=== PATIENT | male | born 1960 ===

== ENCOUNTER 2023-04-20 15:05 | Inpatient (IN) ==
[2023-04-20] MEDS ORDERED: STAT IV STA ×2 (16:12→22:26)
[2023-04-20] MEDS ORDERED: DEXTROSE 50% 50 ML SYRINGE IV STA ×2 (16:12→22:26)
[2023-04-20] MEDS ORDERED: INSULIN HUMAN REGULAR PER UNIT 10 UNITS in SYRINGE 9.9 ML IV STA (16:12)
[2023-04-20] MEDS ORDERED: CALCIUM GLUCONATE 10% 1,000 MG in DEXTROSE 5% 50 ML IV STA (16:12)
[2023-04-20 16:51] LABS: BUN Creatinine Ratio 23.6 (10-20); Calcium 8.5 mg/dl (8.6-10.3); Creatinine Clr Calc Pharmacy 40.1 ml/min; Est GFR (African American) 46.7 ml/min; Est GFR (Non-African American) 40.3 ml/min; Potassium 6.6 mmol/L (3.5-5.1)
[2023-04-20 16:57] LABS: Hemoglobin 9.7 g/dl (14.0-18.0); Mean Corpuscular Hemoglobin 21.7 pg (25.0-34.0); Mean Corpuscular Hgb Conc 31.3 g/dL (32.0-36.0); Mean Corpuscular Volume 69.2 fL (80.0-100.0); Mean Platelet Volume 11.5 fL (9.4-12.4); Platelet Count 132 K/uL (130-400); RDW Coefficient of Variation 16.8 % (11.5-14.5); RDW Standard Deviation 40.8 fL (36.4-46.3); Red Blood Count 4.48 M/uL (4.70-6.10); White Blood Count 11.82 K/ul (4.8-10.8)
[2023-04-20 17:02] LABS: Basophils # (auto) 0.02 K/uL (0-0.2); Basophils % (auto) 0.2 %; Eosinophils # (auto) 0.05 K/uL (0-0.50); Eosinophils % (auto) 0.4 %; Immature Granulocytes # (auto) 0.07 K/uL (0.01-0.20); Immature Granulocytes % (auto) 0.6 %; Lymphocytes # (auto) 0.18 K/uL (1.2-3.4); Lymphocytes % (auto) 1.5 %; Microcytosis Present; Monocytes # (auto) 0.89 K/uL (0.11-0.59); Monocytes % (auto) 7.5 %; Neutrophils # (auto) 10.61 K/uL (1.40-6.50); Neutrophils % (auto) 89.8 %; Polychromasia 1+; Target Cells 1+; Tear Drop Cells 1+
[2023-04-20 17:02] LABS: Appearance Urine Clear (Clear); Bilirubin Urine Negative (Negative); Blood Urine Negative (Negative); Color Urine Yellow; Glucose Urine UA 2+ (Negative); Ketones Urine Trace (Negative); Leukocyte Esterase Urine Negative (Negative); Nitrite Urine Negative (Negative); Protein Urine Negative (Negative); Specific Gravity Urine 1.017 (1.000-1.030); Urobilinogen Urine Negative (Negative); pH Urine 5.5 (4.5-7.5)
--- NOTE | 2023-04-20 17:19 | Ultrasound Report ---
US renal/blad retro comp CLINICAL HISTORY: shyann TECHNIQUE: Multiple sonographic real-time images of the kidneys and bladder were obtained. COMPARISON: None available at the time of this dictation. FINDINGS: The right kidney measures 10.5 cm in length, and the left kidney measures 10.1 cm in length. The right kidney is normal in size, contour, cortical thickness, and echogenicity. No hydronephrosis is seen. Minimal prominence of the upper pole collecting system is seen. No renal lesion is identifie d. The left kidney is normal in size, contour, cortical thickness and echogenicity. No hydronephrosis i s identified. No renal lesion is identified. Bladder is under distended. The wall may be mildly prominent. The jets were not seen on today's exam. Incidental note is made of splenomegaly measuring 13.7 cm. IMPRESSION: No evidence of hydronephrosis. ACT 112: Negative or not required by law. Electronically signed by: Neto Arellano M.D. 04/20/2023 5:17 PM
--- NOTE | 2023-04-20 17:27 | History & Physical Report ---
Date of Service April 20, 2023 Assessment & Plan (1) Hyperkalemia: Plan: -EKG shows incomplete RBBB which was also present on prior -s/p 10 units insulin/dextrose 50%/calcium gluconate in ER -hold lisinopril -start LR at 125 cc/hr. -repeat BMP in 4 hours to ensure stability (2) YENY (acute kidney injury): Plan: -Prior Cr 1.1 from 2020. -renal/bladder ultrasound unremarkable -hold lisinopril, metformin -IVF as above -repeat BMP tomorrow (3) Leukocytosis: Plan: -likely reactive vs gastroenteritis -stool studies -check UA (4) Nausea vomiting and diarrhea: Plan: -likely gastroenteritis -stool studies ordered Plan DVT ppx- SQ heparin Code status-Full, discussed with patient Chronic Medical issues HTN- hold lisinopril HLD-continue atorvastatin [id number]- hold glimepiride, metformin, januvia. Correctional scale insulin while here Schizophrenia- continue haldol benztropine History of Present Illness Chief Complaint: abnormal outpatient labs Primary Care Provider: [facility] Mr Earl Bailey is a 63 year old man with history of hypertension on lisinopril, non insulin dependent diabetes on metformin, glimepiride and januvia, schizophrenia on haldol who is incarcerated was sent in today for outpatient labwork showing a potassium of 6.2. Patient reports being in his usual state of health and today after getting out of the shower, he suddenly felt very nauseous and had multiple episodes of vomiting. Associated with loose watery diarrhea. No further n/v since being here but still having diarrhea. He denies having chest pain, shortness of breath, fever/chills. Labwork here confirms hyperkalemia (K 6.6) and also shows YENY (Cr 1.9 from baseline 1). He reports getting labwork every 3 months or so and his last set of labwork was reportedly normal. ER course- 10 units insulin, Dextrose 50% amp, Calcium gluconate Allergies Allergy/AdvReac Type Severity Reaction Status Date / Time sodium chloride AdvReac Unknown CONTRAINDICATED Verified 04/20/23 16:27 [From [place] Nasal] FOR THIS PT. Home Medications Medication Instructions Recorded Confirmed Type benztropine 1 mg tablet 1 mg PO BID 07/19/21 04/20/23 History glimepiride 4 mg tablet (Amaryl) 8 mg PO QAM 07/19/21 04/20/23 History haloperidol 5 mg tablet 5 mg PO BID 07/19/21 04/20/23 History metformin 1,000 mg tablet 1,000 mg PO BID 07/19/21 04/20/23 History ascorbic acid (vitamin C) 500 mg 500 mg PO DAILY 04/20/23 04/20/23 History tablet (Vitamin C) atorvastatin 20 mg tablet (Lipitor) 20 mg PO DAILY 04/20/23 04/20/23 History lisinopril 10 mg tablet 10 mg PO DAILY 04/20/23 04/20/23 History ondansetron HCl 8 mg tablet 8 mg PO DAILY 04/20/23 04/20/23 History sitagliptin phosphate 100 mg 100 mg PO DAILY 04/20/23 04/20/23 History tablet (Januvia) Past Med/Surg History Medical History Diabetes HTN (hypertension) Hyperlipemia Inmate in correctional facility [facility] Psychiatric disorder Surgical History No history of previous surgery Social History Smoking Status: Never smoker Second Hand Exposure: No; Do You Dip or Chew Tobacco: No ([facility]); Hx Alcohol Use: No ([facility]) Hx Substance Use: No ([facility]) Preferred Language: Belarusian Communication Ability: Effective Grocery Cashier Required: No Beliefs That Will Affect Care: None Current Living Situation: Other Current Living Situation Comment: [facility] Feels Safe at Home: Yes Review of Systems Review of Systems: As above in HPI. Remaining ROS otherwise negative Physical Exam Physical Exam: Appears stated age, thin, non toxic ENMT: Mucous membrane dry, head is normocephalic, atraumatic Respiratory: Breathing comfortably on room air, no wheezing/rhonchi/rales Cardiovascular: Regular rate and rhythm, no murmurs/rubs/galloops Gastrointestinal (Abdomen): soft, non tender, +BS Musculoskeletal: No edema, no clubbing, no cyanosis Skin: No bruising, no rash, no ulcer noted on exposed skin Neurologic: awake, alert, spontaneously moving extremities Psychiatric: affect normal, speech linear, non pressured, maintains eye contact Results & Data Results & Data Vital Signs (Past 12 Hours) Vital Signs Temp Pulse Pulse Resp BP BP Pulse Ox 04/20/23 16:12 86 22 98 04/20/23 15:14 94 H 04/20/23 15:19 93 H 22 110/59 L 98 04/20/23 15:19 36.6 C 93 H 22 110/59 L 98 O2 Del Method 04/20/23 16:12 Room Air 04/20/23 15:14 04/20/23 15:19 Room Air 04/20/23 15:19 Room Air
[2023-04-20] MEDS ORDERED: NovoLIN-R INSULIN PER UNIT CHARGE ONE (18:01)
[2023-04-20] MEDS ORDERED: GLUCAGON FOR INJ 1 MG VIAL SQ PRN (18:08)
[2023-04-20] MEDS ORDERED: DEXTROSE 50% 50 ML SYRINGE IV PRN (18:08)
[2023-04-20] MEDS ORDERED: GLUCOSE 10 TAB/TUBE PO PRN (18:08)
[2023-04-20] MEDS ORDERED: CARBOHYDRATES FOR HYPOGLYCEMIA PO PRN (18:08)
[2023-04-20] MEDS ORDERED: GLUCOSE 40% GEL 15 GM TUBE PO PRN (18:08)
[2023-04-20] MEDS: LACTATED RINGER'S 1,000 ML IV SCH (18:11)
--- NOTE | 2023-04-20 18:33 | Emergency Department Note ---
History of Present Illness General Chief Complaint: Abnormal Labs/Diagnostic Testing Stated Complaint: HIGH POTASSIUM/BUN/CREAT, VOMITING Time Seen by Provider: 04/20/23 16:01 History of Present Illness Provider Complaint: + abnormal lab Description of abnormal result: Increase potassium Associated symptoms: + nausea (vomitting); no chest pain or no shortness of breath Home Medications Medication Instructions Recorded Confirmed Type benztropine 1 mg tablet 1 mg PO BID 07/19/21 04/20/23 History glimepiride 4 mg tablet (Amaryl) 8 mg PO QAM 07/19/21 04/20/23 History haloperidol 5 mg tablet 5 mg PO BID 07/19/21 04/20/23 History metformin 1,000 mg tablet 1,000 mg PO BID 07/19/21 04/20/23 History ascorbic acid (vitamin C) 500 mg 500 mg PO DAILY 04/20/23 04/20/23 History tablet (Vitamin C) atorvastatin 20 mg tablet (Lipitor) 20 mg PO DAILY 04/20/23 04/20/23 History lisinopril 10 mg tablet 10 mg PO DAILY 04/20/23 04/20/23 History ondansetron HCl 8 mg tablet 8 mg PO DAILY 04/20/23 04/20/23 History sitagliptin phosphate 100 mg 100 mg PO DAILY 04/20/23 04/20/23 History tablet (Januvia) Allergies Allergy/AdvReac Type Severity Reaction Status Date / Time sodium chloride AdvReac Unknown CONTRAINDICATED Verified 04/20/23 16:27 [From [place] Nasal] FOR THIS PT. Past Med/Surg History Medical History Diabetes HTN (hypertension) Hyperlipemia Inmate in correctional facility [facility] Sharath Psychiatric disorder Surgical History No history of previous surgery Social History Smoking Status: Never smoker Second Hand Exposure: No; Do You Dip or Chew Tobacco: No ([facility]); Hx Alcohol Use: No ([facility]) Hx Substance Use: No ([facility]) Preferred Language: Comoran Communication Ability: Effective Information Systems Project Manager Required: No Beliefs That Will Affect Care: None Current Living Situation: Other Current Living Situation Comment: [facility] Feels Safe at Home: Yes Physical Exam Vital Signs: Vital Signs - 24 hr 04/20/23 15:19 04/20/23 15:19 04/20/23 15:14 Temperature 36.6 C Temperature Source Oral Pulse Rate 93 H 94 H Pulse Rate [Apical ] 93 H Pulse Rhythm Regular Pulse Rhythm [Apic al] Regular Pulse Strength Normal Pulse Strength [Ap ical] Normal Respiratory Rate 22 22 Respiratory Effort / Characteristics Non-Labored Non-Labored Respiratory Depth Normal Normal Respiratory Patter n Regular Regular Blood Pressure 110/59 L Blood Pressure [Ri ght Arm] 110/59 L Blood Pressure Aminta n 76 Blood Pressure Aminta n [Right Arm] 76 Blood Pressure Pos ition Lying Pulse Oximetry 98 98 Oxygen Delivery Me thod Room Air Room Air Sepsis Recent Feve r Within 48 Hours No Sepsis New/Unexpla ined Change in Men rosemary Status No Sepsis Action Take n by Nursing No Action Required 04/20/23 16:12 Temperature Temperature Source Pulse Rate 86 Pulse Rate [Apical ] Pulse Rhythm Regular Pulse Rhythm [Apic al] Pulse Strength Pulse Strength [Ap ical] Respiratory Rate 22 Respiratory Effort / Characteristics Respiratory Depth Respiratory Patter n Blood Pressure Blood Pressure [Ri ght Arm] Blood Pressure Aminta n Blood Pressure Aminta n [Right Arm] Blood Pressure Pos ition Pulse Oximetry 98 Oxygen Delivery Me thod Room Air Sepsis Recent Feve r Within 48 Hours Sepsis New/Unexpla ined Change in Men rosemary Status Sepsis Action Take n by Nursing Physical Exam: Physical Exam GENERAL: oriented to person, place, and time. appears well-developed and well- nourished. HENT: Exam performed. - Head: Normocephalic and atraumatic. EYES: Conjunctivae and EOM are normal. Right eye exhibits no discharge. Left eye exhibits no discharge. No scleral icterus. NECK: Normal range of motion. Neck supple. No JVD present. CV: Normal rate, regular rhythm, normal heart sounds and intact distal pulses. There is no peripheral edema. Palpable radial pulses bue. PULM/CHEST: Effort normal and breath sounds normal. No respiratory distress. No stridor. no wheezes. no rales. ABD: The abdomen is soft. There is no tenderness. NEURO: Motor and sensation grossly intact. SKIN: Skin is warm and dry. He is not diaphoretic. PSYCH: normal mood and affect. Behavior is normal. Judgment and thought content normal. Course Course 1601: The patient was evaluated in room B8. A complete history and physical exam was performed Administered Medications Lactated Ringer's (Lr) 1,000 mls @ 125 mls/hr IV .Q8H CHANELL Stop: 05/20/23 17:59 Last Admin: 04/20/23 18:11 Dose: 125 mls/hr Documented By: CIPRIANO Discontinued Medications Dextrose (Dextrose 50% 50 Ml Syringe) 50 ml IV NOW STA Stop: 04/20/23 16:13 Last Admin: 04/20/23 18:05 Dose: 50 ml Documented By: CIPRIANO Calcium Gluconate 1,000 mg/ (Dextrose) 60 mls @ 240 mls/hr IV ONCE STA Stop: 04/20/23 16:26 Last Infusion: 04/20/23 17:57 Dose: 0 mls/hr Documented By: Admin: 04/20/23 17:44 Dose: 240 mls/hr Documented By: CIPRIANO Insulin Human Regular 10 units (/ Syringe) 9.9 mls @ 3 mls/sec IV ONE STA Stop: 04/20/23 16:13 Last Admin: 04/20/23 18:06 Dose: 3 mls/sec Documented By: CIPRIANO Co-signed By: DIOMEDES Insulin Human Regular (Novolin-R Insulin Per Unit Charge) Confirm Administered Dose 10 units .ROUTE .STK-MED ONE Stop: 04/20/23 18:02 Last Admin: 04/20/23 18:11 Dose: Not Given Documented By: CIPRIANO Miscellaneous (Stat Iv) 1 each N/A NOW STA Stop: 04/20/23 16:13 Last Admin: 04/20/23 17:58 Dose: Not Given Documented By: CIPRIANO Medical Decision Making Medical Records Attestation: I reviewed the patient's medical records. External medical records reviewed. Patient had blood work done earlier today which showed a potassium greater than 6. Laboratory Data Attestation: I reviewed the patient's lab results. 04/20/23 15:23 04/20/23 15: Lab Results 04/20/23 04/20/23 04/20/23 Range/Units 15: 15: 16:40 WBC 11.82 H (4.8-10.8) K/ul RBC 4.48 L (4.70-6.10) M/uL Hgb 9.7 L (14.0-18.0) g/dl Hct 31.0 L (42.0-52.0) % MCV 69.2 L (80.0-100.0) fL MCH 21.7 L (25.0-34.0) pg MCHC 31.3 L (32.0-36.0) g/dL RDW Std Deviation 40.8 (36.4-46.3) fL RDW Coeff of Mellissa 16.8 H (11.5-14.5) % Plt Count 132 (130-400) K/uL MPV 11.5 (9.4-12.4) fL Immature Gran % (Auto) 0.6 % Neut % (Auto) 89.8 % Lymph % (Auto) 1.5 % [place] % (Auto) 7.5 % Eos % (Auto) 0.4 % Baso % (Auto) 0.2 % Neut # (Auto) 10.61 H (1.40-6.50) K/uL Lymph # (Auto) 0.18 L (1.2-3.4) K/uL [place] # (Auto) 0.89 H (0.11-0.59) K/uL Eos # (Auto) 0.05 (0-0.50) K/uL Baso # (Auto) 0.02 (0-0.2) K/uL Immature Gran # (Auto) 0.07 (0.01-0.20) K/uL Polychromasia 1+ Microcytosis Present Target Cells 1+ Tear Drop Cells 1+ Sodium 139 (136-145) mmol/L Potassium 6.6 H* (3.5-5.1) mmol/L Chloride 111 H (98-107) mmol/L Carbon Dioxide 21 (21-32) mmol/L Anion Gap 7 (3-11) BUN 42 H (6-23) mg/dl Creatinine 1.78 H (0.6-1.4) mg/dl Est Cr Clr Drug Dosing 40.1 ml/min Est GFR ( Amer) 46.7 ml/min Est GFR (Non-Af Amer) 40.3 ml/min BUN/Creatinine Ratio 23.6 H (10-20) Glucose 271 H (70-99(Fasting)) mg/dl Calcium 8.5 L (8.6-10.3) mg/dl Urine Color Yellow Urine Appearance Clear (Clear) Urine pH 5.5 (4.5-7.5) Ur Specific [place] 1.017 (1.000-1.030) Urine Protein Negative (Negative) Urine Glucose (UA) 2+ H (Negative) Urine Ketones Trace H (Negative) Urine Blood Negative (Negative) Urine Nitrite Negative (Negative) Urine Bilirubin Negative (Negative) Urine Urobilinogen Negative (Negative) Ur Leukocyte Esterase Negative (Negative) Imaging Data Radiologist's Impression: Renal Ultrasound 04/20/23 16:12 US renal/blad retro comp CLINICAL HISTORY: yeny TECHNIQUE: Multiple sonographic real-time images of the kidneys and bladder were obtained. COMPARISON: None available at the time of this dictation. FINDINGS: The right kidney measures 10.5 cm in length, and the left kidney measures 10.1 cm in length. The right kidney is normal in size, contour, cortical thickness, and echogenicity. No hydronephrosis is seen. Minimal prominence of the upper pole collecting system is seen. No renal lesion is identified. The left kidney is normal in size, contour, cortical thickness and echogenicity. No hydronephrosis is identified. No renal lesion is identified. Bladder is under distended. The wall may be mildly prominent. The jets were not seen on today's exam. Incidental note is made of splenomegaly measuring 13.7 cm. IMPRESSION: No evidence of hydronephrosis. ACT 112: Negative or not required by law. Electronically signed by: Neto Arellano M.D. 04/20/2023 5:17 PM ECG Data Attestation: I personally reviewed and interpreted this ECG as follows: Indication: other (arrythmia) Rate (beats per minute): 92 Rhythm: normal sinus Findings: no ST depression, no ST elevation or no prolonged QT MDM Narrative Vital signs stable. Labs show white blood cell count of 11.82 hemoglobin 9.7 platelet count 132 potassium 6.6 creatinine 1.78. Urinalysis negative. Ultrasound of the renal system is negative. Patient will be treated for hyperkalemia with calcium gluconate 1 g, 1 amp D50, 10 units of insulin. [facility] [place] [facility] spoke with Jerrica who stated to admit to Dr. Jordan. Impression & Plan Hyperkalemia, YENY (acute kidney injury) Critical Care Time Critical Care Time: Yes Total Critical Care Time: 39 I have personally spent greater than 39 minutes of critical care time in the direct management of this patient. This includes bedside care, interpretation of diagnostic studies, and testing, discussion with consultants, patient, and family members, and other required patient management activities. This 39 minutes is in excess of all separately billable procedures. Discharge Plan Visit Data Chief Complaint: Abnormal Labs/Diagnostic Testing Stated Complaint: HIGH POTASSIUM/BUN/CREAT, VOMITING ED Provider: Td Petit Discharge Problem: Hyperkalemia, YENY (acute kidney injury) Patient Disposition: Admitted As Inpatient Forms Stand Alone Forms: My [facility] Prescriptions Prescriptions: No Action haloperidol 5 mg Tablet 5 mg PO BID metformin 1,000 mg Tablet 1,000 mg PO BID Rx Instructions: TAKES 0600 & 1600 glimepiride [Amaryl] 4 mg Tablet 8 mg PO QAM benztropine 1 mg Tablet 1 mg PO BID atorvastatin [Lipitor] 20 mg Tablet 20 mg PO DAILY ondansetron HCl [Zofran] 8 mg Tablet 8 mg PO DAILY ascorbic acid (vitamin C) [Vitamin C] 500 mg Tablet 500 mg PO DAILY lisinopril 10 mg Tablet 10 mg PO DAILY Januvia 100 mg Tablet 100 mg PO DAILY Referrals Referrals: Sharath ALICEA [Primary Care Provider] -
[2023-04-20] MEDS: INSULIN ASPART PER UNIT CHARGE SC SCH (20:03)
[2023-04-20] MEDS ORDERED: ACETAMINOPHEN 325 MG TAB PO PRN (20:47)
[2023-04-20] MEDS ORDERED: ONDANSETRON INJ 2 MG/ML 2 ML VIAL IV PRN (20:47)
[2023-04-20] MEDS ORDERED: ENOXAPARIN INJ 40 MG/0.4 ML SYR SQ SCH (20:47)
[2023-04-20 22:01] LABS: BUN Creatinine Ratio 19.8 (10-20); Calcium 8.8 mg/dl (8.6-10.3); Creatinine Clr Calc Pharmacy 35.3 ml/min; Est GFR (African American) 40.1 ml/min; Est GFR (Non-African American) 34.6 ml/min; Potassium 6.3 mmol/L (3.5-5.1)
[2023-04-20] MEDS: BENZTROPINE MESYLATE 1 MG TAB PO SCH (22:01)
[2023-04-20] MEDS: haloperidoL 5 MG TAB PO SCH (22:01)
[2023-04-20] MEDS ORDERED: SODIUM ZIRCONIUM CYCLOSILICATE 10 GM PACKET PO ONE (22:05)
[2023-04-20] MEDS ORDERED: CALCIUM GLUCONATE 10% 1,000 MG in DEXTROSE 5% 50 ML IV ONE (22:45)
[2023-04-20] MEDS ORDERED: INSULIN HUMAN REGULAR PER UNIT 10 UNITS in SYRINGE 9.9 ML IV ONE (22:45)
[2023-04-20 23:26] LABS: Adenovirus F 40/41 PCR Not Detected (NotDetected); Astrovirus PCR Not Detected (NotDetected); Campylobacter PCR Not Detected (NotDetected); Cryptosporidium PCR Not Detected (NotDetected); Cyclospora cayetanensis PCR Not Detected (NotDetected); Entamoeba histolytica PCR Not Detected (NotDetected); Enteroaggregative E.coli(EAEC) Not Detected (NotDetected); Enteropathogenic E.coli (EPEC) Not Detected (NotDetected); Enterotoxigenic E.coli (ETEC) Not Detected (NotDetected); Giardia lamblia PCR Not Detected (NotDetected); Norovirus GI/GII PCR Not Detected (NotDetected); Plesiomonas shigelloides PCR Not Detected (NotDetected); Rotavirus A PCR Not Detected (NotDetected); Salmonella PCR Not Detected (NotDetected); Sapovirus PCR Not Detected (NotDetected); Shiga-like Toxin E.coli (STEC) Not Detected (NotDetected); Shigella/Enteroinvasive E.coli Not Detected (NotDetected); Vibrio cholerae PCR Not Detected (NotDetected); Vibrio species PCR Not Detected (NotDetected); Yersinia enterocolitica PCR Not Detected (NotDetected)
[2023-04-21] MEDS: LACTATED RINGER'S 1,000 ML IV SCH ×3 (02:02→20:16)
[2023-04-21 06:47] LABS: Hematocrit (blood only) 27.2 % (42.0-52.0); Hemoglobin 8.5 g/dl (14.0-18.0); Mean Corpuscular Hemoglobin 21.7 pg (25.0-34.0); Mean Corpuscular Hgb Conc 31.3 g/dL (32.0-36.0); Mean Corpuscular Volume 69.6 fL (80.0-100.0); Platelet Count 108 K/uL (130-400); RDW Coefficient of Variation 16.6 % (11.5-14.5); RDW Standard Deviation 40.9 fL (36.4-46.3); Red Blood Count 3.91 M/uL (4.70-6.10); White Blood Count 7.94 K/ul (4.8-10.8)
[2023-04-21 07:43] LABS: BUN Creatinine Ratio 19.5 (10-20); Calcium 9.2 mg/dl (8.6-10.3); Creatinine Clr Calc Pharmacy 42.2 ml/min; Est GFR (African American) 49.7 ml/min; Est GFR (Non-African American) 42.9 ml/min; Potassium 5.5 mmol/L (3.5-5.1)
[2023-04-21] MEDS: haloperidoL 5 MG TAB PO SCH ×2 (08:54→20:09)
[2023-04-21] MEDS: ATORVASTATIN 20 MG TAB PO SCH (08:54)
[2023-04-21] MEDS: BENZTROPINE MESYLATE 1 MG TAB PO SCH ×2 (08:54→20:09)
[2023-04-21] MEDS: PANTOprazole 40 MG in SYRINGE 0 ML IV SCH ×2 (08:55→20:09)
[2023-04-21] MEDS: INSULIN ASPART PER UNIT CHARGE SC SCH ×4 (08:55→20:16)
--- NOTE | 2023-04-21 10:27 | Electrocardiogram Report ---
Test Reason : Blood Pressure : / mmHG Vent. Rate : 092 BPM Atrial Rate : 092 BPM P-R Int : 148 ms QRS Dur : 094 ms QT Int : 336 ms P-R-T Axes : 061 030 -11 degrees QTc Int : 415 ms Normal sinus rhythm RSR' or QR pattern in V1 suggests right ventricular conduction delay Nonspecific T wave abnormality Abnormal ECG No previous ECGs available Confirmed by Augusto Linares ([id number]) on 04/21/2023 10:26:51 AM Referred By: Confirmed By:Augusto Linares
--- NOTE | 2023-04-21 14:17 | Hospitalist Progress Note ---
Date of Service April 21, 2023 Assessment & Plan (1) Hyperkalemia: Plan: -EKG shows incomplete RBBB which was also present on prior -s/p 10 units insulin/dextrose 50%/calcium gluconate in ER -hold lisinopril -continue LR at 125 cc/hr. -Improved (2) YENY (acute kidney injury): Plan: -Prior Cr 1.1 from 2020. -renal/bladder ultrasound unremarkable -hold lisinopril, metformin -IVF as above -improved (3) Leukocytosis: Plan: -likely reactive vs gastroenteritis -stool studies--negative -UA--unremarkable -resolved (4) Nausea vomiting and diarrhea: Plan: -likely gastroenteritis -now resolved (5) Microcytic anemia: Plan: -Patient denies symptoms of acute or chronic blood loss. Possibly has thalassemia from his description of what he's been told. -Will check iron studies, repeat CBC this afternoon -FOBT ordered but BM so far today -Protonix IV BID and clears for now -consult GI. With his age and anemia, he does need screening for colon cancer either here or outpatient Plan DVT ppx-SCD for now, no AC due to anemia Code status-Full, discussed with patient Chronic Medical issues HTN- hold lisinopril HLD-continue atorvastatin [id number]- hold glimepiride, metformin, januvia. Correctional scale insulin while here Schizophrenia- continue haldol benztropine Admission and Anticipated Discharge Date Admission Date: April 20, 2023 Subjective No further diarrhea or nausea/vomiting Denies black or tarry stools, denies blood in his stool Review of Systems Review of Systems: As above in HPI Physical Exam Physical Exam: Appears stated age, no acute distress, pleasant and comfortable Respiratory: Breathing comfortably on room air, no wheezing/rhonchi/rales Cardiovascular: regular rate and rhythm, no murmurs/rubs/gallops Gastrointestinal (Abdomen): soft, non tender, non distended Musculoskeletal: no edema, no cyanosis or clubbing Neurologic: awake, alert, spontaneously moving extremities Results & Data Results & Data Vital Signs (Past 12 Hours) Vital Signs Temp Pulse Pulse Resp BP Pulse Ox O2 Del Method 04/21/23 12:13 37.0 C 80 17 118/69 100 Room Air 04/21/23 08:00 70 04/21/23 08:01 36.9 C 72 17 123/73 99 Room Air 04/21/23 02:56 37.0 C 73 14 111/60 97 Room Air
[2023-04-21 15:42] LABS: Hematocrit (blood only) 28.1 % (42.0-52.0); Hemoglobin 8.9 g/dl (14.0-18.0); Mean Corpuscular Hemoglobin 22.1 pg (25.0-34.0); Mean Corpuscular Hgb Conc 31.7 g/dL (32.0-36.0); Mean Corpuscular Volume 69.9 fL (80.0-100.0); Mean Platelet Volume 11.8 fL (9.4-12.4); Platelet Count 108 K/uL (130-400); RDW Coefficient of Variation 16.7 % (11.5-14.5); RDW Standard Deviation 41.3 fL (36.4-46.3); Red Blood Count 4.02 M/uL (4.70-6.10); White Blood Count 6.74 K/ul (4.8-10.8)
[2023-04-21 16:00] LABS: BUN Creatinine Ratio 17.1 (10-20); Calcium 8.8 mg/dl (8.6-10.3); Creatinine Clr Calc Pharmacy 45.1 ml/min; Est GFR (African American) 53.9 ml/min; Est GFR (Non-African American) 46.5 ml/min; Potassium 4.2 mmol/L (3.5-5.1)
[2023-04-21 16:21] LABS: Ferritin 24.7 ng/ml (8-388)
[2023-04-22] MEDS: LACTATED RINGER'S 1,000 ML IV SCH (04:48)
[2023-04-22 07:02] LABS: Hematocrit (blood only) 28.9 % (42.0-52.0); Mean Corpuscular Hemoglobin 21.7 pg (25.0-34.0); Mean Corpuscular Hgb Conc 31.1 g/dL (32.0-36.0); Mean Corpuscular Volume 69.8 fL (80.0-100.0); Mean Platelet Volume 11.2 fL (9.4-12.4); Platelet Count 110 K/uL (130-400); RDW Coefficient of Variation 16.7 % (11.5-14.5); RDW Standard Deviation 41.2 fL (36.4-46.3); Red Blood Count 4.14 M/uL (4.70-6.10); White Blood Count 5.78 K/ul (4.8-10.8)
[2023-04-22 07:16] LABS: BUN Creatinine Ratio 11.8 (10-20); Creatinine Clr Calc Pharmacy 52.4 ml/min; Est GFR (African American) 64.6 ml/min; Est GFR (Non-African American) 55.8 ml/min; Potassium 4.3 mmol/L (3.5-5.1)
[2023-04-22] MEDS: INSULIN ASPART PER UNIT CHARGE SC SCH ×2 (09:19→12:45)
[2023-04-22] MEDS: haloperidoL 5 MG TAB PO SCH (09:29)
[2023-04-22] MEDS: BENZTROPINE MESYLATE 1 MG TAB PO SCH (09:29)
[2023-04-22] MEDS: PANTOprazole 40 MG in SYRINGE 0 ML IV SCH (09:29)
[2023-04-22] MEDS: ATORVASTATIN 20 MG TAB PO SCH (09:29)
--- NOTE | 2023-04-22 11:10 | Gastrointestinal Consultation ---
Date of Consultation April 22, 2023 Assessment & Plan (1) Microcytic anemia: He has chronic anemia that is not from his GI tract. Admittedly he does need screening colonoscopy but that is an elective outpatient procedure. I plan no testing while he is here History of Present Illness Reason for Consultation: anemia Attending Physician: Mc Jacques MD History of Present Illness 63 year old admitted with electrolyte problems and noted to have anemia. Patient reports being told in the past he had "thalassemia". Iron studies done in the hospital are normal as is his ferritin. Patient denies any bleeding through his rectum. On admit he had a spell of vomiting and had a loose stool simultaneously but that is gone now. He has never had any testing done on his GI tract. Allergies Allergy/AdvReac Type Severity Reaction Status Date / Time sodium chloride AdvReac Unknown CONTRAINDICATED Verified 04/20/23 16:27 [From [facility] Nasal] FOR THIS PT. Home Medications Medication Instructions Recorded Confirmed Type benztropine 1 mg tablet 1 mg PO BID 07/19/21 04/20/23 History glimepiride 4 mg tablet (Amaryl) 8 mg PO QAM 07/19/21 04/20/23 History haloperidol 5 mg tablet 5 mg PO BID 07/19/21 04/20/23 History metformin 1,000 mg tablet 1,000 mg PO BID 07/19/21 04/20/23 History ascorbic acid (vitamin C) 500 mg 500 mg PO DAILY 04/20/23 04/20/23 History tablet (Vitamin C) atorvastatin 20 mg tablet (Lipitor) 20 mg PO DAILY 04/20/23 04/20/23 History lisinopril 10 mg tablet 10 mg PO DAILY 04/20/23 04/20/23 History ondansetron HCl 8 mg tablet 8 mg PO DAILY 04/20/23 04/20/23 History sitagliptin phosphate 100 mg 100 mg PO DAILY 04/20/23 04/20/23 History tablet (Januvia) Patient History Medical History Diabetes HTN (hypertension) Hyperlipemia Inmate in correctional facility [facility] Psychiatric disorder Surgical History No history of previous surgery Social History Smoking Status: Unknown if ever smoked Second Hand Exposure: No; Do You Dip or Chew Tobacco: No (DEANNE Beltran); Hx Alcohol Use: No Hx Substance Use: No Preferred Language: Haitian Communication Ability: Effective Instrument Worker Required: No Beliefs That Will Affect Care: None Current Living Situation: Other Current Living Situation Comment: DEANNE BELTRAN Feels Safe at Home: Yes Safety Concerns: Feels Safe At This Time Assistive Devices: Glasses Results & Data Vital Signs (Past 12 Hours) Vital Signs Temp Pulse Pulse Resp BP Pulse Ox O2 Del Method 04/22/23 08:00 67 04/22/23 06:32 36.9 C 68 18 143/71 H 99 Room Air 04/22/23 03:00 37.0 C 70 18 118/71 98 Room Air Laboratory Results 04/22/23 04/22/23 04/22/23 Range/Units 07:10 06:13 06:13 WBC 5.78 (4.8-10.8) K/ul RBC 4.14 L (4.70-6.10) M/uL Hgb 9.0 L (14.0-18.0) g/dl Hct 28.9 L (42.0-52.0) % MCV 69.8 L (80.0-100.0) fL MCH 21.7 L (25.0-34.0) pg MCHC 31.1 L (32.0-36.0) g/dL RDW Std Deviation 41.2 (36.4-46.3) fL RDW Coeff of Mellissa 16.7 H (11.5-14.5) % Plt Count 110 L (130-400) K/uL MPV 11.2 (9.4-12.4) fL Sodium 141 (136-145) mmol/L Potassium 4.3 (3.5-5.1) mmol/L Chloride 109 H (98-107) mmol/L Carbon Dioxide 28 (21-32) mmol/L Anion Gap 4 (3-11) BUN 16 (6-23) mg/dl Creatinine 1.36 (0.6-1.4) mg/dl Est Cr Clr Drug Dosing 52.4 ml/min Est GFR ( Amer) 64.6 ml/min Est GFR (Non-Af Amer) 55.8 ml/min BUN/Creatinine Ratio 11.8 (10-20) Glucose 98 (70-99(Fasting)) mg/dl POC Glucose 119 H (70-99) mg/dl Calcium 9.0 (8.6-10.3) mg/dl Iron (35-175) mcg/dl Unsaturated IBC (155-355) mcg/dl Ferritin (8-388) ng/ml 04/21/23 04/21/23 04/21/23 Range/Units 20:05 16:19 15:26 WBC (4.8-10.8) K/ul RBC (4.70-6.10) M/uL Hgb (14.0-18.0) g/dl Hct (42.0-52.0) % MCV (80.0-100.0) fL MCH (25.0-34.0) pg MCHC (32.0-36.0) g/dL RDW Std Deviation (36.4-46.3) fL RDW Coeff of Mellissa (11.5-14.5) % Plt Count (130-400) K/uL MPV (9.4-12.4) fL Sodium 139 (136-145) mmol/L Potassium 4.2 D (3.5-5.1) mmol/L Chloride 108 H (98-107) mmol/L Carbon Dioxide 26 (21-32) mmol/L Anion Gap 5 (3-11) BUN 27 H (6-23) mg/dl Creatinine 1.58 H (0.6-1.4) mg/dl Est Cr Clr Drug Dosing 45.1 ml/min Est GFR ( Amer) 53.9 ml/min Est GFR (Non-Af Amer) 46.5 ml/min BUN/Creatinine Ratio 17.1 (10-20) Glucose 142 H (70-99(Fasting)) mg/dl POC Glucose 156 H 108 H (70-99) mg/dl Calcium 8.8 (8.6-10.3) mg/dl Iron 78 (35-175) mcg/dl Unsaturated IBC 188 (155-355) mcg/dl Ferritin 24.7 (8-388) ng/ml 04/21/23 04/21/23 Range/Units 15:26 11:23 WBC 6.74 (4.8-10.8) K/ul RBC 4.02 L (4.70-6.10) M/uL Hgb 8.9 L (14.0-18.0) g/dl Hct 28.1 L (42.0-52.0) % MCV 69.9 L (80.0-100.0) fL MCH 22.1 L (25.0-34.0) pg MCHC 31.7 L (32.0-36.0) g/dL RDW Std Deviation 41.3 (36.4-46.3) fL RDW Coeff of Mellissa 16.7 H (11.5-14.5) % Plt Count 108 L (130-400) K/uL MPV 11.8 (9.4-12.4) fL Sodium (136-145) mmol/L Potassium (3.5-5.1) mmol/L Chloride (98-107) mmol/L Carbon Dioxide (21-32) mmol/L Anion Gap (3-11) BUN (6-23) mg/dl Creatinine (0.6-1.4) mg/dl Est Cr Clr Drug Dosing ml/min Est GFR ( Amer) ml/min Est GFR (Non-Af Amer) ml/min BUN/Creatinine Ratio (10-20) Glucose (70-99(Fasting)) mg/dl POC Glucose 237 H (70-99) mg/dl Calcium (8.6-10.3) mg/dl Iron (35-175) mcg/dl Unsaturated IBC (155-355) mcg/dl Ferritin (8-388) ng/ml Diagnostic Findings Renal Ultrasound 04/20/23 16:12 US renal/blad retro comp CLINICAL HISTORY: shyann TECHNIQUE: Multiple sonographic real-time images of the kidneys and bladder were obtained. COMPARISON: None available at the time of this dictation. FINDINGS: The right kidney measures 10.5 cm in length, and the left kidney measures 10.1 cm in length. The right kidney is normal in size, contour, cortical thickness, and e chogenicity. No hydronephrosis is seen. Minimal prominence of the upper pole collecting system is seen. No renal lesion is identified. The left kidney is normal in size, contour, cortical thickness and echogenicity. No hydronephrosis is identified. No renal lesion is identified. Bladder is under distended. The wall may be mildly prominent. The jets were not seen on today's exam. Incidental note is made of splenomegaly measuring 13.7 cm. IMPRESSION: No evidence of hydronephrosis. ACT 112: Negative or not required by law. Electronically signed by: Neto Arellano M.D. 04/20/2023 5:17 PM
--- NOTE | 2023-04-23 11:09 | Discharge Summary ---
Date of Service April 23, 2023 Admission HPI Per Admitting Provider Mr Earl Bailey is a 63 year old man with history of hypertension on lisinopril, non insulin dependent diabetes on metformin, glimepiride and januvia, schizophrenia on haldol who is incarcerated was sent in today for outpatient labwork showing a potassium of 6.2. Patient reports being in his usual state of health and today after getting out of the shower, he suddenly felt very nauseous and had multiple episodes of vomiting. Associated with loose watery diarrhea. No further n/v since being here but still having diarrhea. He denies having chest pain, shortness of breath, fever/chills. Labwork here confirms hyperkalemia (K 6.6) and also shows YENY (Cr 1.9 from baseline 1). He reports getting labwork every 3 months or so and his last set of labwork was reportedly normal. ER course- 10 units insulin, Dextrose 50% amp, Calcium gluconate Principal Diagnosis Hyperkalemia Acute kidney injury Viral gastroenteritis Microcytic anemia Discharge Exam Patient was seen and examined on the day of discharge. He feels well. No further nausea/vomiting/diarrhea at least for 24 hours. He is tolerating a diet. He appears well. No acute distress Breathing comfortably on room air Abdomen is soft and non tender Discharge Data Allergies Allergy/AdvReac Type Severity Reaction Status Date / Time sodium chloride AdvReac Unknown CONTRAINDICATED Verified 04/20/23 16:27 [From [facility] Nasal] FOR THIS PT. Consultations 04/20/23 16:19 ED Decision to Admit Stat 04/21/23 14:28 Consult Gastroenterology Routine Ordered Studies 04/20/23 16:12 US renal/blad retro comp Stat Hospital Course (1) Hyperkalemia: -EKG shows incomplete RBBB which was also present on prior -received 10 units IV insulin, dextrose 50% and calcium gluconate in ER with improvement of potassium. Later received 1 dose of Lokelma -hold lisinopril -continue LR at 125 cc/hr. -Improved (2) YENY (acute kidney injury): -Prior Cr 1.1 from 2020. -renal/bladder ultrasound unremarkable -hold lisinopril, metformin -IVF as above -improved (3) Leukocytosis: -likely reactive vs gastroenteritis -stool studies--negative -UA--unremarkable -resolved (4) Nausea vomiting and diarrhea: -likely gastroenteritis -now resolved (5) Microcytic anemia: -Patient denies symptoms of acute or chronic blood loss. Possibly has thalassemia from his description of what he's been told. -Will check iron studies, repeat CBC this afternoon -FOBT ordered but BM so far today -Protonix IV BID and clears for now -consult GI. With his age and anemia, he does need screening for colon cancer either here or outpatient Plan Mr Earl Bailey is a 63 year old man with history of non insulin dependent diabetes, hypertension on lisinopril, anemia (possibly thalassemia) who is incarcerated at [facility] was sent to [facility] ER on 04/20 due to abnormal labs at the [facility]. Mr Bailey reports being in his usual state of health but that on 04/20 after taking a shower he suddenly felt very nauseous and had multiple episodes of vomiting as well as watery diarrhea. He was sent to the [facility] and there his potassium was noted to be elevated at 6.2 so he was sent to the ER for further evaluation. Here, his potassium was confirmed to be elevated at 6.6. He did not have EKG changes. In the ER, he received 10 units IV insulin, Dextrose 50% ampule, and calcium gluconate. He was then admitted to the hospitalist service for further management. He received 1 dose of Lokelma and LR at 125 cc/hr. For his nausea/vomiting he received zofran as needed. His stool PCR was negative for infectious etiology and after 1 day of being in the hospital his gastroenteritis resolved. He remained on IV fluids due to YENY and by day 2 of admission his renal function was down to 1.3 which is near his baseline of 1. After receiving IV fluids, his Hb down trended to 8. It was noted to be microcytic. By history, he reports having chronic anemia and relates that he was told he may have what sounds to be Thalassemia. He denies history of black, tarry or red stools. Here, his heme occult was negative. Initially when there was concern he may have a GIB, he was placed on protonix IV and diet held at clears. He was also evaluated by GI. Once GI bleed was ruled out, his diet was advanced to a heart healthy diet which he tolerated. At the time of discharge, he was feeling well. Tolerating a diet and had no further GI symptoms. He was discharged back to [facility] in stable condition. Signout was provided to Danica at the [facility]. Discharge instructions were as follows: -Repeat BMP in next 2 days. Lisinopril can be resumed once Cr back to baseline -Follow up with GI for colonoscopy for cancer screening -Follow up with Hematology for evaluation of chronic microcytic anemia, likely thalassemia Above instructions were relayed to patient and he expresses understanding. Total Time Total Time Spent Total Time Spent (In Minutes): 40 Discharge Plan Discharge Items Patient Disposition: [facility] Reason For Visit: HYPERKALEMIA Discharge Diagnosis: Hyperkalemia YENY Microcytic anemia Gastroenteritis, likely viral Condition on Discharge: Good Activity: Resume your previous activity Non-emergency contact: Primary Care Provider and Manager Bilingual Call non-emergency contact if: you have any medication questions and your symptoms worsen Follow-up/Referrals: [email or web address] [Primary Care Provider] - Diet: Carb Consistent or DM2 and Heart Healthy Addtl Attending Provider Instructions: You were admitted for elevate potassium and acute kidney injury You also had nausea/vomiting/diarrhea which are now resolved Your stool studies were negative for infection You have been on IV fluids and your kidney function is much improved (Cr 2 on admission--> now 1.3) Your potassium has also normalized (6.6 on admission --> now 4.3) Would recommend a repeat BMP in next 2 days and Lisinopril can be restarted once Creatinine is down to baseline While here, it was noted you have anemia. Your iron studies are normal which suggests you may have underlying thalassemia. It is recommended you see a grocery store associate for your anemia for workup of thalassemia It is recommended you also have a routine screening colonoscopy given your age. Pending Studies at Discharge: No Stand-Alone Forms: My [facility] Skilled Items Patient informed of condition?: Yes Discharge Level of Care: Other Communicable Disease: No Discharge Prognosis: Stable Lines: None Urinary Catheter: No Medications and DC Order Prescriptions: Continued haloperidol 5 mg Tablet 5 mg PO BID metformin 1,000 mg Tablet 1,000 mg PO BID Rx Instructions: TAKES 0600 & 1600 glimepiride [Amaryl] 4 mg Tablet 8 mg PO QAM benztropine 1 mg Tablet 1 mg PO BID atorvastatin [Lipitor] 20 mg Tablet 20 mg PO DAILY ondansetron HCl 8 mg Tablet 8 mg PO DAILY ascorbic acid (vitamin C) [Vitamin C] 500 mg Tablet 500 mg PO DAILY Januvia 100 mg Tablet 100 mg PO DAILY Held lisinopril 10 mg Tablet 10 mg PO DAILY Hold Instructions: Resume on 04/25/23. Can resume when Cr back to baseline Discharge Orders: Discharge Order (Routine); Ordered 04/22/23 Ordered By: Mc Jacques Admission Data Admit Date/Time: 04/20/23 18:02 Attending Provider: Mc Jacques Admit Provider: Mc Jacques Primary Care Provider: Sharath ALICEA Other Providers: Nahomi Jordan ; Elisabeth Horton Jr Other Interventions: Discharge Summary Assessment (RN) Last Done: 04/22/23 13:13
== END 2023-04-22 15:09 | DRG 641 ==
LOC: ED 15:05 → 4W 18:02 → 2E 20:57